=== PATIENT | female | born 1965 | race American Indian/Alaskan Native ===

== ENCOUNTER 2018-05-14 18:50 | Inpatient (IN) | payer OTHER ==
--- NOTE | 2018-05-14 18:59 | Emergency Department Report ---
ED Neuro Deficit HPI - General Stated Complaint: POSS CVA Time Seen by Provider: 05/14/18 18:54 Source: patient Mode of arrival: Ambulatory Limitations: No Limitations - History of Present Illness Initial Comments: 53-year-old female with a past medical history of hypertension not compliant with medications times several months presents to the hospital with complaints of sudden onset of slurred speech, left-sided face, left arm, and leg weakness and numbness started at 6 PM. The patient denies any pain. Symptoms are continuous. She denies previous history of CVA, or anticoagulant use. Does not have a primary care doctor. - Related Data Allergies/Adverse Reactions: Allergies Allergy/AdvReac Type Severity Reaction Status Date / Time No Known Allergies Allergy Unverified 05/14/18 18:57 ED Review of Systems ROS: Stated complaint: POSS CVA Other details as noted in HPI Comment: All other systems reviewed and negative ED Neuro Physical Exam - General Suspected Stroke: Yes - NIHSS Assessment Interval: Baseline 1a. Level of Consciousness: alert/keenly responsive 1b. LOC Questions: answers both correctly 1c. LOC Commands: performs tasks correctly 2. Best Gaze: normal 3. Visual: no visual loss 4. Facial Palsy: partial paralysis 5b. Motor Arm Right: no drift 5a. Motor Arm Left: some gravity effort 6a. Motor Leg Left: no gravity effort 6b. Motor Leg Right: no drift 7. Limb Ataxia: absent 8. Sensory: mild/moderate sensory loss (left) 9. Best Language: no aphasia 10. Dysarthria: mild/moderate dysarthria 11. Extinction/Inattention: no abnormality Total Score: 9 Stroke Severity: Moderate Stroke - Other Other exam information: General: No limitations, patient is alert in no acute distress Head exam: Atraumatic, normocephalic Eyes exam: Normal appearance, pupils equal reactive to light, extraocular movements intact ENT: Moist mucous membrane, normal oropharynx Neck exam: Normal inspection, full range of motion, no meningismus nontender Respiratory exam: Clear to auscultation bilateral, no wheezes, rales, crackles Cardiovascular: Normal rate and rhythm, normal heart sounds Abdomen: Soft, nondistended, and nontender, with normal bowel sounds, no rebound, or guarding Extremity: Full range of motion normal inspection no deformity Back: Normal Inspection, full range of motion, no tenderness Neurologic: Alert, oriented x3, see NIHSS Psychiatric: normal affect, normal mood Skin: Warm, dry, intact ED Course Vital Signs 05/14/18 05/14/18 05/14/18 19:14 19:16 19:30 Pulse Rate 90 69 73 Respiratory 18 20 11 L Rate Blood Pressure 162/99 O2 Sat by Pulse 100 100 Oximetry 05/14/18 05/14/18 05/14/18 19:45 20:19 20:20 Pulse Rate 72 89 84 Respiratory 18 20 18 Rate Blood Pressure 154/83 146/73 O2 Sat by Pulse 100 100 Oximetry 05/14/18 05/14/18 05/14/18 20:30 20:40 20:50 Pulse Rate 84 82 76 Respiratory 19 15 19 Rate Blood Pressure 161/91 161/91 142/92 O2 Sat by Pulse 99 99 100 Oximetry 05/14/18 05/14/18 05/14/18 21:00 21:10 21:20 Pulse Rate 72 77 82 Respiratory 17 14 15 Rate Blood Pressure 143/82 143/82 148/90 O2 Sat by Pulse 98 99 99 Oximetry 05/14/18 21:25 Pulse Rate Respiratory Rate Blood Pressure O2 Sat by Pulse 100 Oximetry - Consultations Consultation #1: 05/14/18 19:29 Dr Engel neuro assessed pt, agrees tpa is indicated. He reviewed Ct Head and no signs of bleed. Unfortunately diagnostic radiologic technologist is unable to send images to [facility] at this time therefore official report at this. He is aware and rec tpa be given at this time. - Lab Data Result diagrams: 05/14/18 19:11 05/14/18 19:11 Lab Results 05/14/18 05/14/18 05/14/18 Range/Units 19:11 19:11 19:11 WBC 8.2 (4.5-11.0) K/mm3 RBC 4.40 (3.65-5.03) M/mm3 Hgb 13.7 (10.1-14.3) gm/dl Hct 39.6 (30.3-42.9) % MCV 90 (79-97) fl MCH 31 (28-32) pg MCHC 35 H (30-34) % RDW 14.8 (13.2-15.2) % Plt Count 393 (140-440) K/mm3 Lymph % (Auto) 48.2 H (13.4-35.0) % [place] % (Auto) 9.7 H (0.0-7.3) % Eos % (Auto) 1.5 (0.0-4.3) % Baso % (Auto) 1.0 (0.0-1.8) % Lymph # 3.9 (1.2-5.4) K/mm3 [place] # 0.8 (0.0-0.8) K/mm3 Eos # 0.1 (0.0-0.4) K/mm3 Baso # 0.1 (0.0-0.1) K/mm3 Seg Neutrophils % 39.6 L (40.0-70.0) % Seg Neutrophils # 3.2 (1.8-7.7) K/mm3 PT 12.4 (12.2-14.9) Sec. INR 0.87 (0.87-1.13) APTT 25.8 (24.2-36.6) Sec. Thrombin Time (15.1-19.6) Sec. Sodium 142 (137-145) mmol/L Potassium 3.4 L (3.6-5.0) mmol/L Chloride 102.9 (98-107) mmol/L Carbon Dioxide 26 (22-30) mmol/L Anion Gap 17 mmol/L BUN 8 (7-17) mg/dL Creatinine 1.1 (0.7-1.2) mg/dL Estimated GFR > 60 ml/min BUN/Creatinine Ratio 7 % Glucose 86 (65-100) mg/dL Calcium 9.1 (8.4-10.2) mg/dL Troponin T < 0.010 (0.00-0.029) ng/mL Urine Opiates Screen Urine Methadone Screen Ur Barbiturates Screen Ur Phencyclidine Scrn Ur Amphetamines Screen U Benzodiazepines Scrn Urine Cocaine Screen U Marijuana (THC) Screen Drugs of Abuse Note 05/14/18 05/14/18 Range/Units 19:11 20:00 WBC (4.5-11.0) K/mm3 RBC (3.65-5.03) M/mm3 Hgb (10.1-14.3) gm/dl Hct (30.3-42.9) % MCV (79-97) fl MCH (28-32) pg MCHC (30-34) % RDW (13.2-15.2) % Plt Count (140-440) K/mm3 Lymph % (Auto) (13.4-35.0) % [place] % (Auto) (0.0-7.3) % Eos % (Auto) (0.0-4.3) % Baso % (Auto) (0.0-1.8) % Lymph # (1.2-5.4) K/mm3 [place] # (0.0-0.8) K/mm3 Eos # (0.0-0.4) K/mm3 Baso # (0.0-0.1) K/mm3 Seg Neutrophils % (40.0-70.0) % Seg Neutrophils # (1.8-7.7) K/mm3 PT (12.2-14.9) Sec. INR (0.87-1.13) APTT (24.2-36.6) Sec. Thrombin Time 16.3 (15.1-19.6) Sec. Sodium (137-145) mmol/L Potassium (3.6-5.0) mmol/L Chloride (98-107) mmol/L Carbon Dioxide (22-30) mmol/L Anion Gap mmol/L BUN (7-17) mg/dL Creatinine (0.7-1.2) mg/dL Estimated GFR ml/min BUN/Creatinine Ratio % Glucose (65-100) mg/dL Calcium (8.4-10.2) mg/dL Troponin T (0.00-0.029) ng/mL Urine Opiates Screen Presumptive negative Urine Methadone Screen Presumptive negative Ur Barbiturates Screen Presumptive negative Ur Phencyclidine Scrn Presumptive negative Ur Amphetamines Screen Presumptive negative U Benzodiazepines Scrn Presumptive negative Urine Cocaine Screen Presumptive negative U Marijuana (THC) Screen Presumptive negative Drugs of Abuse Note Disclamer - EKG Data -: EKG Interpreted by Ms EKG shows normal: sinus rhythm, axis (qrs -42), QRS complexes (qrsd 85), ST-T waves (no stemi/t inv) Rate: normal When compared to previous EKG there are: previous EKG unavailable - Radiology Data Radiology results: report reviewed HISTORY: neuro deficits <6hrs or sx present upon awakening COMPARISONS: None. FINDINGS: The ventricles are normal in size. The [place] matter and white matter appear normal. There are no mass lesions. There is no intracranial hemorrhage. The calvarium appears intact. The mastoid air cells and visualized paranasal sinuses are well aerated. IMPRESSION: Normal study. cta angio head and neck normal - Medical Decision Making Plans admit to the hospital for further stroke workup. She received TPA in the ED. Noncontrast CT head and CT angiogram head and neck are unremarkable - Differential Diagnosis CVA, TIA, mass, hemorrhage - Thrombolytic Inclusion/Exclusion Thrombolytic Inclusion Criteria: Ischemic Stroke Onset< 3h, NIH Stroke Scale Deficit, Negative CT Scan for ICH, Age 18 or Older, Glucose of 50-400mg/dl Critical Care Time: Yes Critical care time in (mins) excluding proc time.: 40 Critical care attestation.: If time is entered above; I have spent that time in minutes in the direct care of this critically ill patient, excluding procedure time. ED Disposition Clinical Impression: Acute CVA (cerebrovascular accident), Left-sided muscle weakness, Left sided numbness, HTN (hypertension), Noncompliance with medication regimen, Received intravenous tissue plasminogen activator (tPA) in emergency department Disposition: -09 OP ADMIT IP TO THIS HOSP Is pt being admited?: Yes Condition: Stable Time of Disposition: 21:48 (Dr Early/hosp)
[2018-05-14 19:24] LABS: Basophils # (Auto) 0.1 K/mm3 (0.0-0.1); Eosinophils # (Auto) 0.1 K/mm3 (0.0-0.4); Eosinophils % (Auto) 1.5 % (0.0-4.3); Hematocrit 39.6 % (30.3-42.9); Hemoglobin 13.7 gm/dl (10.1-14.3); Lymphocytes # (Auto) 3.9 K/mm3 (1.2-5.4); Lymphocytes % (Auto) 48.2 % (13.4-35.0); Mean Corpuscular HGB Conc 35 % (30-34); Mean Corpuscular Volume 90 fl (79-97); Monocytes # (Auto) 0.8 K/mm3 (0.0-0.8); Monocytes % (Auto) 9.7 % (0.0-7.3); Platelet Count 393 K/mm3 (140-440); Red Cell Distribution Width 14.8 % (13.2-15.2)
[2018-05-14] MEDS ORDERED: NACL 0.9% IV ONE (19:34)
[2018-05-14] MEDS ORDERED: ACTIVASE IV ONE ×2 (19:34)
[2018-05-14 19:38] LABS: BUN/Creatinine Ratio 7; Blood Urea Nitrogen 8 mg/dL (7-17); Calcium 9.1 mg/dL (8.4-10.2); Hemolysis Index 12
[2018-05-14 19:50] LABS: INR 0.87 (0.87-1.13)
[2018-05-14 19:51] LABS: Partial Thromboplastin Time 25.8 Sec. (24.2-36.6)
--- NOTE | 2018-05-14 19:53 | Cat Scan Report ---
PROCEDURE: CT head without contrast. TECHNIQUE: Computerized tomography of the head was performed without contrast material. CT DOSE LENGTH PRODUCT: 929.82 mGycm HISTORY: neuro deficits <6hrs or sx present upon awakening COMPARISONS: None. FINDINGS: The ventricles are normal in size. The [place] matter and white matter appear normal. There are no mass lesions. There is no intracranial hemorrhage. The calvarium appears intact. The mastoid air cells and visualized paranasal sinuses are well aerated. IMPRESSION: Normal study. This document is electronically signed by Bruno Jones MD., May 14 2018 07:51:34 PM ET
[2018-05-14 21:12] LABS: Amphetamine Screen,Urine PRESUMPTIVE NEGATIVE; Benzodiazepines Screen,Urine PRESUMPTIVE NEGATIVE; Cannabinoid Screen,Urine PRESUMPTIVE NEGATIVE; Cocaine Screen,Urine PRESUMPTIVE NEGATIVE; Methadone Screen,Urine PRESUMPTIVE NEGATIVE; Opiate Screen,Urine PRESUMPTIVE NEGATIVE
--- NOTE | 2018-05-14 21:33 | Cat Scan Report ---
PROCEDURE: CTA angiogram neck with contrast. TECHNIQUE: Computerized tomographic angiography of the neck was performed after the IV injection of iodinated nonionic contrast including image processing. The image data was postprocessed using 2-dime nsional multiplanar reformatted (MPR) and 3-dimensional (MIP and/or volume rendered) techniques. CT DOSE LENGTH PRODUCT: 2184.22 mGycm HISTORY: left sided numbness and weakness COMPARISONS: None. Note: Assessment of carotid artery stenosis is based on measurement of the distal internal carotid a rtery diameter as the denominator for stenosis calculations and the [place] Symptomatic Caroti d Endarterectomy Trial (NASCET) stenosis criteria. FINDINGS: The origins of the innominate artery, left common carotid artery and left subclavian artery are paten t. Both common carotid arteries are widely patent. Both carotid artery bifurcations are widely patent . The internal and external carotid arteries have normal lumens. There is no evidence of atherosclero tic disease. Both vertebral arteries are patent. The soft tissues of the neck are unremarkable. The b ones appear intact. IMPRESSION: Normal study. This document is electronically signed by Bruno Jones MD., May 14 2018 09:30:46 PM ET
--- NOTE | 2018-05-14 21:42 | Cat Scan Report ---
PROCEDURE: CT angiogram head with contrast. TECHNIQUE: Computerized tomographic angiography of the head was performed after the IV injection of iodinated nonionic contrast including image processing. The image data was postprocessed using 2-dim ensional multiplanar reformatted (MPR) and 3-dimensional (MIP and/or volume rendered) techniques. CT DOSE LENGTH PRODUCT: 2184.22 mGycm HISTORY: left sided numbness and weakness COMPARISONS: None . FINDINGS: Both distal internal carotid arteries are patent. Both anterior cerebral arteries are patent. The ant erior communicating artery is probably patent. Both middle cerebral arteries are patent. Both posteri or communicating arteries are patent. Both distal vertebral arteries are patent. The posterior inferi or cerebellar arteries are not definitely visualized. The basilar artery is patent. Both anterior inf erior cerebellar arteries are patent. Both superior cerebellar arteries and both posterior cerebral a rteries are patent. There are no signs of aneurysmal disease. There is no evidence of a vasculitis. T here is no evidence of abnormal contrast enhancement in the brain parenchyma. IMPRESSION: Normal study. This document is electronically signed by Bruno Jones MD., May 14 2018 09:39:24 PM ET
--- NOTE | 2018-05-14 22:09 | History and Physical Report ---
History of Present Illness Date of examination: 05/14/18 History of present illness: 53 year old woman with history of hypertension, non-compliant with medications comes emergency room with complaints of slurred speech, left-sided weakness and numbness. She arrived in the emergency room, was given TPA, state that her s ymptoms are improving Review of systems Constitutional: no weight loss, chills, fever Ears, eyes, nose, mouth and throat: no nasal congestion, no nasal discharge, no sinus pressure, no vision change, no red eye. Neck: No neck pain or rigidity. Cardiovascular: no palpitations, chest pain Respiratory: no cough, shortness of breath Gastrointestinal: no hematochezia, abdominal pain Genitourinary : no frequency , no hematuria Musculoskeletal: no joint swelling or muscle ache Integumentary: no rash, no pruritis Neurological: + parathesias, + focal weakness Endocrine: no cold or heat intolerance, no polyuria or polydipsia Hematologic/Lymphatic: no easy bruising, no easy bleeding, no gland swelling Allergic/Immunologic: no urticaria, no angioedema. PAST MEDICAL HISTORY:hypertension PAST SURGICAL HISTORY: None SOCIAL HISTORY: Denies alcohol, drugs, tobacco FAMILY HISTORY: Hypertension Medications and Allergies Allergies Allergy/AdvReac Type Severity Reaction Status Date / Time No Known Allergies Allergy Unverified 05/14/18 18:57 Exam - Physical Exam Narrative exam: General Apperance: The patient lying in bed, breathing comfortable HEENT: Normocephalic, atraumatic. Pupils equally round and reactive to light, EOMI, no sclericterus or JVD or thyromegaly or nodule. , no carotid bruit, mucous membranes moist, no exudate or erythema Heart: S1-S2, regular is rhythm Lungs: Clear to auscultation bilaterally, breathing comfortable Abdomen: Positive bowel sounds, soft, nontender, nondistended, no organomegaly Extremities: No edema cyanosis clubbing Skin: no rash, nodule, warm and dry Neuro: cranial nerves 2-12 intact, speech is fluent, left facial droop, motor/sensory intact - Constitutional Vitals: Temp Pulse Resp BP Pulse Ox 82 15 148/90 100 05/14/18 21:20 05/14/18 21:20 05/14/18 21:20 05/14/18 21:25 Results - Labs CBC & Chem 7: 05/14/18 19:11 05/14/18 19:11 Labs: Abnormal lab results 05/14/18 05/14/18 Range/Units 19:11 19:11 MCHC 35 H (30-34) % Lymph % (Auto) 48.2 H (13.4-35.0) % [place] % (Auto) 9.7 H (0.0-7.3) % Seg Neutrophils % 39.6 L (40.0-70.0) % Potassium 3.4 L (3.6-5.0) mmol/L - Imaging and Cardiology CT Scan - head: report reviewed Assessment and Plan Head and neck CTA reviewed Assessment Acute CVA Hypertension Noncompliant with medication Plan Admit to medicine Doing neuro checks, swallow screen Start statin, start aspirin after 24 hours Obtain MRI, consult neurology, PT and OT, critical care IV hydralazine as needed for blood pressure control DVT prophylaxis
[2018-05-14] MEDS ORDERED: SODIUM CHLORIDE FLUSH SYRINGE 10 ML IV PRN (22:17)
[2018-05-14] MEDS ORDERED: DULCOLAX PR PRN (22:17)
[2018-05-14] MEDS ORDERED: ZOFRAN IV PRN (22:17)
[2018-05-14] MEDS ORDERED: APRESOLINE IV PRN (22:23)
[2018-05-15 06:18] LABS: Chol/HDL Ratio 3.23 %
--- NOTE | 2018-05-15 08:16 | Progress Note ---
Assessment and Plan 53 year old woman with history of hypertension, non-compliant with medications comes emergency room with complaints of slurred speech, left-sided weakness and numbness. She arrived in the emergency room, was given TPA, state that her symp toms are improving. Acute CVA requiring tPA Hypertension Noncompliant with medication Hypokalemia Plan Neuro checks every 4, swallow screen Commence statin, aspirin after 24 hours Follow-up MRI/MRA of the head and neck, consult neurology, PT and OT, critical care IV hydralazine as needed for blood pressure control DVT prophylaxis SCD for now Subjective Date of service: 05/15/18 Principal diagnosis: acute CVA, hypertension Interval history: Patient seen and examined. Denies any headache no chest pain. No lateralizing neuro deficit. Objective - Exam Narrative Exam: Constitutional: Well-nourished well-developed. In no distress Head: Normocephalic atraumatic Eyes: Pupils are equal round and reactive to light Nose: No enlarged turbinates, no septal deviation. Mouth: Moist mucous membranes. Neck: Supple no thyromegaly. No bruit. No JVD Heart: Regular rate and rhythm, S1-S2 normal. No rubs murmurs or gallop Lungs: Clear to auscultation bilaterally. no rales or rhonchi Abdomen: Soft, nontender. Bowel sound are present. Extremities: No edema, no cyanosis, no clubbing. Neuro: Alert oriented Oriented x3. No focal sensory or motor deficit. Skin: No rashes or hyperpigmented spots Musculoskeletal system: No joint pain or swelling Hematological: No petechia or subcutanous hemorrhages. Immunological: No multiple septic spots on the skin Lymphatic: No generalized lymphadenopathy Psychiatry: Euthymic. Calm. - Constitutional Vitals: Vital Signs - 12hr 05/14/18 05/14/18 05/14/18 20:19 20:20 20:30 Temperature Pulse Rate 89 84 84 Pulse Rate [ Right Arm] Respiratory 20 18 19 Rate Respiratory Rate [Right Arm ] Blood Pressure 146/73 161/91 Blood Pressure [Right Arm] O2 Sat by Pulse 100 99 Oximetry O2 Sat by Pulse Oximetry [ Right Arm] 05/14/18 05/14/18 05/14/18 20:40 20:50 21:00 Temperature Pulse Rate 82 76 72 Pulse Rate [ Right Arm] Respiratory 15 19 17 Rate Respiratory Rate [Right Arm ] Blood Pressure 161/91 142/92 143/82 Blood Pressure [Right Arm] O2 Sat by Pulse 99 100 98 Oximetry O2 Sat by Pulse Oximetry [ Right Arm] 05/14/18 05/14/18 05/14/18 21:10 21:20 21:25 Temperature Pulse Rate 77 82 Pulse Rate [ Right Arm] Respiratory 14 15 Rate Respiratory Rate [Right Arm ] Blood Pressure 143/82 148/90 Blood Pressure [Right Arm] O2 Sat by Pulse 99 99 100 Oximetry O2 Sat by Pulse Oximetry [ Right Arm] 05/14/18 05/14/18 05/14/18 23:28 23:46 23:48 Temperature Pulse Rate 64 Pulse Rate [ 66 Right Arm] Respiratory 13 Rate Respiratory 11 L Rate [Right Arm ] Blood Pressure Blood Pressure 145/73 [Right Arm] O2 Sat by Pulse 99 100 Oximetry O2 Sat by Pulse 100 Oximetry [ Right Arm] 05/14/18 05/15/18 05/15/18 23:54 00:00 00:15 Temperature 98.9 F Pulse Rate 72 66 62 Pulse Rate [ 70 Right Arm] Respiratory 17 14 15 Rate Respiratory 15 Rate [Right Arm ] Blood Pressure 139/77 145/79 Blood Pressure 139/77 [Right Arm] O2 Sat by Pulse 100 97 97 Oximetry O2 Sat by Pulse 100 Oximetry [ Right Arm] 05/15/18 05/15/18 05/15/18 00:18 00:30 00:32 Temperature Pulse Rate 65 Pulse Rate [ 75 68 Right Arm] Respiratory 17 Rate Respiratory 15 14 Rate [Right Arm ] Blood Pressure 145/79 Blood Pressure 141/81 145/79 [Right Arm] O2 Sat by Pulse 99 Oximetry O2 Sat by Pulse 100 100 Oximetry [ Right Arm] 05/15/18 05/15/18 05/15/18 00:45 01:00 01:15 Temperature Pulse Rate 64 81 62 Pulse Rate [ 70 Right Arm] Respiratory 15 14 14 Rate Respiratory 19 Rate [Right Arm ] Blood Pressure 141/75 141/75 126/68 Blood Pressure 141/75 [Right Arm] O2 Sat by Pulse 98 99 95 Oximetry O2 Sat by Pulse 99 Oximetry [ Right Arm] 05/15/18 05/15/18 05/15/18 01:18 01:30 01:45 Temperature Pulse Rate 59 L 63 Pulse Rate [ 60 Right Arm] Respiratory 15 13 Rate Respiratory 13 Rate [Right Arm ] Blood Pressure 126/71 119/62 Blood Pressure 126/68 [Right Arm] O2 Sat by Pulse 99 98 Oximetry O2 Sat by Pulse 99 Oximetry [ Right Arm] 05/15/18 05/15/18 05/15/18 01:48 02:00 02:15 Temperature Pulse Rate 63 66 Pulse Rate [ 64 Right Arm] Respiratory 12 12 Rate Respiratory 13 Rate [Right Arm ] Blood Pressure 116/68 106/59 Blood Pressure 119/62 [Right Arm] O2 Sat by Pulse 99 98 Oximetry O2 Sat by Pulse 99 Oximetry [ Right Arm] 05/15/18 05/15/18 05/15/18 02:18 02:30 02:45 Temperature Pulse Rate 87 61 Pulse Rate [ 66 Right Arm] Respiratory 14 13 Rate Respiratory 12 Rate [Right Arm ] Blood Pressure 106/59 124/64 Blood Pressure 106/59 [Right Arm] O2 Sat by Pulse 100 98 Oximetry O2 Sat by Pulse 98 Oximetry [ Right Arm] 05/15/18 05/15/18 05/15/18 02:48 03:00 03:15 Temperature Pulse Rate 62 82 Pulse Rate [ 60 Right Arm] Respiratory 13 13 Rate Respiratory 12 Rate [Right Arm ] Blood Pressure 116/67 116/68 Blood Pressure 124/64 [Right Arm] O2 Sat by Pulse 99 97 Oximetry O2 Sat by Pulse 99 Oximetry [ Right Arm] 05/15/18 05/15/18 05/15/18 03:18 03:30 03:45 Temperature Pulse Rate 66 67 Pulse Rate [ 64 Right Arm] Respiratory 13 12 Rate Respiratory 12 Rate [Right Arm ] Blood Pressure 105/62 111/61 Blood Pressure 116/68 [Right Arm] O2 Sat by Pulse 98 95 Oximetry O2 Sat by Pulse 99 Oximetry [ Right Arm] 05/15/18 05/15/18 05/15/18 03:48 04:00 04:15 Temperature 98.7 F Pulse Rate 66 60 Pulse Rate [ 66 Right Arm] Respiratory 11 L 12 Rate Respiratory 12 Rate [Right Arm ] Blood Pressure 120/65 117/67 Blood Pressure 111/61 [Right Arm] O2 Sat by Pulse 97 99 Oximetry O2 Sat by Pulse 98 Oximetry [ Right Arm] 05/15/18 05/15/18 05/15/18 04:18 04:30 04:45 Temperature Pulse Rate 79 79 Pulse Rate [ 59 L Right Arm] Respiratory 13 13 Rate Respiratory 12 Rate [Right Arm ] Blood Pressure 110/71 118/60 Blood Pressure 117/67 [Right Arm] O2 Sat by Pulse 98 98 Oximetry O2 Sat by Pulse 99 Oximetry [ Right Arm] 05/15/18 05/15/18 05/15/18 04:48 05:00 05:16 Temperature Pulse Rate 68 58 L Pulse Rate [ 60 Right Arm] Respiratory 13 13 Rate Respiratory 12 Rate [Right Arm ] Blood Pressure 126/75 126/75 Blood Pressure 118/60 [Right Arm] O2 Sat by Pulse 100 100 Oximetry O2 Sat by Pulse 100 Oximetry [ Right Arm] 05/15/18 05/15/18 05/15/18 05:30 05:46 05:48 Temperature Pulse Rate 70 59 L Pulse Rate [ 60 Right Arm] Respiratory 11 L 11 L Rate Respiratory 12 Rate [Right Arm ] Blood Pressure 126/75 127/76 Blood Pressure 127/76 [Right Arm] O2 Sat by Pulse 100 98 Oximetry O2 Sat by Pulse 100 Oximetry [ Right Arm] 05/15/18 05/15/18 06:00 08:00 Temperature 98.4 F Pulse Rate 60 Pulse Rate [ 80 Right Arm] Respiratory 11 L Rate Respiratory 16 Rate [Right Arm ] Blood Pressure 121/69 Blood Pressure 121/69 [Right Arm] O2 Sat by Pulse 99 Oximetry O2 Sat by Pulse 100 Oximetry [ Right Arm] - Labs CBC & Chem 7: 05/14/18 19:11 05/14/18 19:11 Labs: Abnormal lab results 05/14/18 05/14/18 Range/Units 19:11 19:11 MCHC 35 H (30-34) % Lymph % (Auto) 48.2 H (13.4-35.0) % [place] % (Auto) 9.7 H (0.0-7.3) % Seg Neutrophils % 39.6 L (40.0-70.0) % Potassium 3.4 L (3.6-5.0) mmol/L
--- NOTE | 2018-05-15 10:02 | Consultation ---
History of Present Illness Consult date: 05/15/18 Requesting physician: MARILOU GRIFFITH Reason for consult: other (Acute CVA s/p tpA) History of present illness: PCCM CONSULT NOTE (Full note dictated # [id number]) Please see dictated notes for full details Medications and Allergies Allergies Allergy/AdvReac Type Severity Reaction Status Date / Time No Known Allergies Allergy Unverified 05/14/18 18:57 Active Meds: Active Medications Acetaminophen (Tylenol) 650 mg PO Q4H PRN PRN Reason: Pain, Mild (1-3) Atorvastatin Calcium (Lipitor) 40 mg PO QHS [facility] Last Admin: 05/14/18 23:14 Dose: 40 mg Documented by: Bisacodyl (Dulcolax) 10 mg DE QDAY PRN PRN Reason: Constipation Hydralazine HCl (Apresoline) 5 mg IV Q6H PRN PRN Reason: Hypertension Ondansetron HCl (Zofran) 4 mg IV Q4H PRN PRN Reason: Nausea And Vomiting Sodium Chloride (Sodium Chloride Flush Syringe 10 Ml) 10 ml IV PRN PRN PRN Reason: LINE FLUSH Physical Examination Vital signs: Vital Signs Pulse Resp 90 18 05/14/18 19:14 05/14/18 19:14 Results - Laboratory Findings CBC and BMP: 05/14/18 19:11 05/14/18 19:11 PT/INR, D-dimer PT 12.4 Sec. (12.2-14.9) 05/14/18 19:11 INR 0.87 (0.87-1.13) 05/14/18 19:11 Abnormal lab findings: Abnormal Labs 05/14/18 05/14/18 19:11 19:11 MCHC 35 H Lymph % (Auto) 48.2 [place] % (Auto) 9.7 H Seg Neutrophils % 39.6 L Potassium 3.4 L
[2018-05-15] MEDS: TYLENOL PO PRN ×2 (11:56→19:36)
[2018-05-15] MEDS: PEPCID PO SCH (11:56)
[2018-05-15] MEDS ORDERED: K-DUR PO ONE (12:00)
--- NOTE | 2018-05-15 12:54 | Consultation ---
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 She noted weakness and numbness of left arm, leg and face. She noted her speech was also slurred. She admits having a headache on 05/13 but not during the event on 05/14. She denies changes in vision, palptations, diaphoresis, chest pain, nausea, dizziness. There is no family history of stroke. The CT brain scan is neg. for acute stroke. She arrived to ER in the appropriate timeframe for TPA and this was provided. She is feeling better at this time with resolution of weakness and numbness except for her left hand and left face. She has been taking no medications. Past History Past Medical History: hypertension Social history: denies: smoking, alcohol abuse Family history: cancer, other (COPD) Medications and Allergies Allergies Allergy/AdvReac Type Severity Reaction Status Date / Time No Known Allergies Allergy Unverified 05/14/18 18:57 Active Meds: Active Medications Acetaminophen (Tylenol) 650 mg PO Q4H PRN PRN Reason: Pain, Mild (1-3) Last Admin: 05/15/18 11:56 Dose: 650 mg Documented by: Atorvastatin Calcium (Lipitor) 40 mg PO QHS [facility] Last Admin: 05/14/18 23:14 Dose: 40 mg Documented by: Bisacodyl (Dulcolax) 10 mg DC QDAY PRN PRN Reason: Constipation Famotidine (Pepcid) 20 mg PO DAILY [facility] Last Admin: 05/15/18 11:56 Dose: 20 mg Documented by: Hydralazine HCl (Apresoline) 5 mg IV Q6H PRN PRN Reason: Hypertension Ondansetron HCl (Zofran) 4 mg IV Q4H PRN PRN Reason: Nausea And Vomiting Sodium Chloride (Sodium Chloride Flush Syringe 10 Ml) 10 ml IV PRN PRN PRN Reason: LINE FLUSH Review of Systems Constitutional: weakness, no chronic headaches Ears, nose, mouth and throat: no tinnitis, no decreased hearing Cardiovascular: no chest pain, no palpitations, no rapid/irregular heart beat, no syncope, no lightheadedness, no shortness of breath Respiratory: no cough, no shortness of breath, no congestion Gastrointestinal: no abdominal pain, no nausea, no vomiting, no diarrhea, no constipation Genitourinary Female: no dysuria, no urinary frequency, no urgency Musculoskeletal: arm numbness/tingling Integumentary: no rash, no pruritis Neurological: weakness, numbness, tingling, change in speech, gait dysfunction, motor disturbance, sensory deficit, no balance difficulties, no double vision, no loss of vision, no hearing difficulties Physical Examination - Vital Signs Vital Signs: Vital Signs Pulse Resp 90 18 05/14/18 19:14 05/14/18 19:14 - Physical Exam Narrative exam: General - Resting comfortably in bed. Neurological exam - Speech fluent, low volume. Relates history well. CN's - EOMs full, no nystagmus. Face with left weakness. V-1 thru V-3 with numbness to touch on left. hearing intact. tongue midline. Motor - 5/5 on right. Left - deltoids, triceps, biceps 5/5. wrist extensors 4/5. finger extensors 3/5. 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 LLE - 5/5 in all groups. Reflexes - trace throughout. Sensory - intact arm and leg. Decreased touch left hand, lt. face. Cerebellar - FTN, fine finger movements, Adilia intact. - Assessment Assessment Interval: 24 hours post onset of symptoms +-20 minutes - Level of Consciousness 1a. Level of Consciousness: alert/keenly responsive - LOC Questions 1b. LOC Questions: answers both correctly - LOC Command 1c. LOC Commands: performs tasks correctly - Best Gaze 2. Best Gaze: normal - Visual 3. Visual: no visual loss - Facial Palsy 4. Facial Palsy: partial paralysis - Motor Arm 5a. Motor Arm Left: drift 5b. Motor Arm Right: no drift - Motor Leg 6a. Motor Leg Left: no drift 6b. Motor Leg Right: no drift - Limb Ataxia 7. Limb Ataxia: absent - Sensory 8. Sensory: mild/moderate sensory loss (left) - Best Language 9. Best Language: no aphasia - Dysarthria 10. Dysarthria: normal - Extinction and Inattention 11. Extinction/Inattention: no abnormality - Scoring Total Score: 4 Stroke Severity: Minor Stroke Results - Laboratory Findings CBC and BMP: 05/14/18 19:11 05/14/18 19:11 Abnormal Lab Findings: Abnormal Labs 05/14/18 05/14/18 19:11 19:11 MCHC 35 H Lymph % (Auto) 48.2 H Jewell % (Auto) 9.7 H Seg Neutrophils % 39.6 L Potassium 3.4 L Assessment and Plan 53 year old female with history of hypertension, on no meds, presented to ER with acute left sided weakness and dysarthria. CT was neg. She received TPA and has done well with resolution of weakness and numbness in the extremities. There is residual numbness in the left hand and face. Plan - ASA daily, start when appropriate Blood pressure control Atorvastatin.
--- NOTE | 2018-05-15 13:50 | XRay Report ---
AP CHEST: HISTORY: Hypoxemia AP view of the chest demonstrates a normal mediastinal and cardiac contour with clear lungs and normal bony and soft tissue structures. IMPRESSION: Unremarkable AP chest.
[2018-05-15] MEDS: MYLICON PO PRN (16:58)
--- NOTE | 2018-05-15 22:38 | Consultation ---
PULMONARY CRITICAL CARE CONSULTATION CONSULTING PHYSICIAN: Izabella Early MD REASON FOR CONSULTATION: Acute cerebrovascular accident, status post TPA. CHIEF COMPLAINT AND HISTORY OF PRESENT ILLNESS: As follows, the patient is a 53-year-old -S[place]i female with past medical history significant for hypertension, really noncompliant with her medications, came into the hospital. She states she woke up out of sleep with sudden onset of slurred speech and left-sided numbness, her arm, her face. Her legs were weak. She denied any pain. She denied any trauma. She came into the ER. In the ER, her evaluation was consistent with a cerebrovascular accident. After appropriate evaluation. She was given thrombolytic therapy and admitted to the Intensive Care Unit for further evaluation. When I stopped by to see her today, she was feeling a little bit stronger on the left side. She denied any bleeding. No hematuria. No hemoptysis. No hematemesis. She denied nausea or vomiting. She denied any current headache or any suggestion of an intracranial bleed. She denies a history of seizure disorders. She denied any trauma to her head. When asked about tobacco use/abuse history, she denied tobacco use or abuse. This really is as much of the history of presentation as I have. PAST MEDICAL HISTORY: 1. Hypertension. 2. She is obese. PAST SURGICAL HISTORY: Denies. MEDICATIONS: She was on at the time I stopped by to see were reviewed, pertinent medications include the following: Tylenol 650 mg p.o. q. 4 hours p.r.n. mild pain, Lipitor 40 mg p.o. at bedtime, Dulcolax suppository 10 mg per rectum p.r.n. constipation, hydralazine 5 mg IV q. 6 hours p.r.n. hypertension or elevated blood pressure, Zofran 4 mg IV q. 4 hours p.r.n. nausea and vomiting. ALLERGIES: No known drug allergies. DIET: Obese lady, denies acute weight loss or gain in the preceding few weeks to months. FAMILY AND SOCIAL HISTORY: Lives in the community. Denies alcohol, tobacco, or illicit drug use or abuse. There is a family history of hypertension. REVIEW OF SYSTEMS: She denies loss of consciousness. She had the new onset focal weakness on the left side. Denied any headache. Denied gross hematochezia or melena. Denies gross hematuria or dysuria. Denied any seizures. Denies polydipsia or polyuria. Denies heat or cold intolerance. Denies any history of ____ anxiety, unexplained anxiety or depression. Denies any spasticity. Complete 13-system review of systems obtained. Pertinent positives and/or negatives as in body of history above, otherwise noncontributory. PHYSICAL EXAMINATION: VITAL SIGNS: At presentation, she was afebrile, temperature was 98.9 Fahrenheit with a pulse of 90, respiratory rate of 18, blood pressure 162/99, oxygen sats 100%. When I stopped by to see her, she was 99% on 2 liters nasal cannula. GENERAL: She is an obese, middle-aged -S[place]i female, normocephalic, atraumatic, talking to me in full sentences, but with slightly slurred speech with mildly increased respiratory effort at rest. HEAD, EYES, EARS, NOSE AND THROAT: She is anicteric. No conjunctival erythema. Oropharynx is moist, is a Mallampati #3. No gross jugular venous distention, no thyromegaly. Grossly, no palpable lymph nodes in the supraclavicular or submandibular lymph node chains. LUNGS: Auscultation of both lung wilhelm significant for faint inspiratory crackles at the bases of her lungs posteriorly. No wheezing. HEART: Heart sounds 1 and 2 are heard. They were regular in rate and rhythm at time of my evaluation without rubs or murmurs. ABDOMEN: Soft, full, bowel sounds are positive, nontender, no palpable hepatosplenomegaly. EXTREMITIES: Without overt digital clubbing, no cyanosis, no pedal edema. NEUROLOGIC: Pupils equal, round, about 5 mm, reactive to light. Extraocular muscle movements were intact. She has a little bit of slurred speech. She is slightly weak in the left side. I would say power is 4/5 on the left upper and lower extremities, 5/5 on the right side. No fasciculations. No spasticity. SKIN: Normal turgor without overt cellulitis or rash. LABORATORY DATA: From my review are as follows: Admission white cell count 8200, hemoglobin 13.7, hematocrit 39.6 and platelet count 393. No band forms. INR 0.87. Serum sodium 142, potassium 3.4, chloride 103, bicarb 26, BUN 8, creatinine 1.1, glucose 86. LDL cholesterol is 87. Urine drug screen was negative. No microbiology studies. A CT scan was done of the head as well as CT angio of the head and neck. I have reviewed the results. The CT of the brain was read as a normal study. The CT angiogram of the head was read as a normal study and the CT angiogram of the neck was also normal study. ASSESSMENT AND PLAN: 1. Acute cerebrovascular accident, status post TPA. 2. Hypertension, poorly controlled. 3. Obesity. 4. Medication noncompliance. 5. Mild hypokalemia. PLAN: I have discussed the risk factors of cerebrovascular accidents with her. I explained the importance of her using her medications as ordered in particular the importance of controlling her blood pressure better. I have also expressed to her, she will benefit from weight loss and expressed to her that the incidence of sleep disordered breathing is also increased in patients with a cerebrovascular injuries and she will probably benefit from sleep study as outpatient. She denies any significant excessive daytime somnolence at this time or overt signs and symptoms of obstructive sleep apnea. The plan will be to observe her in the Intensive Care Unit over the next 24 hours. She has a Gurrola catheter in place. We will keep that in place, still we are done with the 24-hour observation. Oxygen will be weaned to keep sats greater than or equal to about 90% in light of the inspiratory crackles which hopefully are no more than subsegmental atelectatic changes. I will get a chest x-ray and address as necessary. Bronchodilators will be only on a p.r.n. basis. Aspiration precautions will be maintained. She has appropriately been started on antilipid therapy. Antihypertensives will be introduced. She has also been started now on GI prophylaxis, especially post-TPA. She will also be started on DVT prophylaxis. After the 24-hour window, flu and pneumonia vaccination will be addressed per protocol. Thank you very much for the consult, Dr. Early. We will follow along. We will make further recommendations as picture progresses/becomes clearer. She is critically ill at elevated risk of acute decompensation of the neurological system including the risk of a cerebrovascular accident bleeding and even the risk of post-TPA. At this time, I have spent about 30-35 minutes of critical care time without overlap excluding any procedural time that may be necessary. JOB# [id number] MARYANN/NIDIA SOLIS
[2018-05-16] MEDS: MYLICON PO PRN (03:51)
[2018-05-16] MEDS: TYLENOL PO PRN ×2 (03:52→10:39)
--- NOTE | 2018-05-16 08:20 | Progress Note ---
Assessment and Plan Assessment and plan: Patient is a 53 yo man with a history of hypertension who presented to [facility] ED with slurred speech and left side weakness s/p tPA on 05/14/18 at approximately 7:52pm. She was admitted to ICU for further care. -Acute CVA s/p tPA: repeat imaging -Hypertension: monitor closely -Hypokalemia: replete and monitor closely History Interval history: Patient was seen and examined. Follow-up on current diagnosis of CVA. Overnight uneventful. Patient denies any chest pain, shortness breath, nausea/vomiting or severe headaches. Imaging, nursing note, chart, labs and old chart reviewed. Discussed with nursing, pt c/o worsening slurred speech Hospitalist Physical - Physical exam Narrative exam: Gen: WDWN, NAD, Awake, Alert, Orientated HEENT: NCAT, EOMI, PERRL, OP Clear Neck: supple, no adenopathy, no thyromegaly, no JVD CVS/Heart: RRR, normal S1S2, pulses present bilaterally Chest/Lungs: CTA B, Symmetrical chest expansion, good air entry bilaterally GI/Abdomen: soft, NTND, good bowel sounds, no guarding or rebound /Bladder: no suprapubic tenderness, no CVA or paraspinal tenderness Extermity/Skin: no c/c/e, no obvious rash MSK: FROM x 3 Neuro: CN 2-12 grossly intact, left hemiparesis, left facial droop Psych: calm - Constitutional Vitals: Temp Pulse Resp BP Pulse Ox 98.6 F 57 L 12 127/76 98 05/16/18 03:25 05/16/18 07:00 05/16/18 07:00 05/16/18 07:00 05/16/18 07:43 Results - Labs CBC & Chem 7: 05/14/18 19:11 05/14/18 19:11 Labs: Laboratory Last Values WBC 8.2 K/mm3 (4.5-11.0) 05/14/18 19:11 RBC 4.40 M/mm3 (3.65-5.03) 05/14/18 19:11 Hgb 13.7 gm/dl (10.1-14.3) 05/14/18 19:11 Hct 39.6 % (30.3-42.9) 05/14/18 19:11 MCV 90 fl (79-97) 05/14/18 19:11 MCH 31 pg (28-32) 05/14/18 19:11 MCHC 35 % (30-34) H 05/14/18 19:11 RDW 14.8 % (13.2-15.2) 05/14/18 19:11 Plt Count 393 K/mm3 (140-440) 05/14/18 19:11 Lymph % (Auto) 48.2 % (13.4-35.0) H 05/14/18 19:11 Carver % (Auto) 9.7 % (0.0-7.3) H 05/14/18 19:11 Eos % (Auto) 1.5 % (0.0-4.3) 05/14/18 19:11 Baso % (Auto) 1.0 % (0.0-1.8) 05/14/18 19:11 Lymph # 3.9 K/mm3 (1.2-5.4) 05/14/18 19:11 Carver # 0.8 K/mm3 (0.0-0.8) 05/14/18 19:11 Eos # 0.1 K/mm3 (0.0-0.4) 05/14/18 19:11 Baso # 0.1 K/mm3 (0.0-0.1) 05/14/18 19:11 Seg Neutrophils % 39.6 % (40.0-70.0) L 05/14/18 19:11 Seg Neutrophils # 3.2 K/mm3 (1.8-7.7) 05/14/18 19:11 PT 12.4 Sec. (12.2-14.9) 05/14/18 19:11 INR 0.87 (0.87-1.13) 05/14/18 19:11 APTT 25.8 Sec. (24.2-36.6) 05/14/18 19:11 Thrombin Time 16.3 Sec. (15.1-19.6) 05/14/18 19:11 Sodium 142 mmol/L (137-145) 05/14/18 19:11 Potassium 3.4 mmol/L (3.6-5.0) L 05/14/18 19:11 Chloride 102.9 mmol/L (98-107) 05/14/18 19:11 Carbon Dioxide 26 mmol/L (22-30) 05/14/18 19:11 Anion Gap 17 mmol/L 05/14/18 19:11 BUN 8 mg/dL (7-17) 05/14/18 19:11 Creatinine 1.1 mg/dL (0.7-1.2) 05/14/18 19:11 Estimated GFR > 60 ml/min 05/14/18 19:11 BUN/Creatinine Ratio 7 % 05/14/18 19:11 Glucose 86 mg/dL (65-100) 05/14/18 19:11 Calcium 9.1 mg/dL (8.4-10.2) 05/14/18 19:11 Troponin T < 0.010 ng/mL (0.00-0.029) 05/14/18 19:11 Triglycerides 142 mg/dL (2-149) 05/15/18 05:32 Cholesterol 139 mg/dL (50-199) 05/15/18 05:32 LDL Cholesterol Direct 87 mg/dL (50-130) 05/15/18 05:32 HDL Cholesterol 43 mg/dL (40-59) 05/15/18 05:32 Cholesterol/HDL Ratio 3.23 % 05/15/18 05:32 Urine Opiates Screen Presumptive negative 05/14/18 20:00 Urine Methadone Screen Presumptive negative 05/14/18 20:00 Ur Barbiturates Screen Presumptive negative 05/14/18 20:00 Ur Phencyclidine Scrn Presumptive negative 05/14/18 20:00 Ur Amphetamines Screen Presumptive negative 05/14/18 20:00 U Benzodiazepines Scrn Presumptive negative 05/14/18 20:00 Urine Cocaine Screen Presumptive negative 05/14/18 20:00 U Marijuana (THC) Screen Presumptive negative 05/14/18 20:00 Drugs of Abuse Note Disclamer 05/14/18 20:00
--- NOTE | 2018-05-16 08:32 | Cat Scan Report ---
CT HEAD WITHOUT CONTRAST: HISTORY: Change in mental status. TECHNIQUE: Sequential 2.5mm CT images. COMPARISON: 05/14/18. FINDINGS: Cerebral Parenchyma: A subtle area of diminished attenuation with loss of [place]-white interface is identified in the lateral right frontal lobe measuring 2.5 x 1.7 cm on image 32. This is a new finding since 05/14/18 exam and is most consistent with a subacute ischemic insult. The remaining brain parenchyma remains within normal limits. Cerebellum: Within normal limits. Brainstem: Within normal limits. Ventricles: Normal. Sella: Normal. Extra-axial spaces: Normal. Basal Cisterns: Normal. Intracranial Hemorrhage: None. Midline Shift: None. Calvarium: Normal. Sinuses: Normal. Mastoid Air Cells: Normal. Visualized Orbits: Normal. IMPRESSION: Subacute ischemic changes are suspected in the right frontal lobe as described above which is new since 05/14/18. No evidence for hemorrhage or mass effect. Dr. Campos was paged [phone] to be notified of these findings.
[2018-05-16] MEDS: PEPCID PO SCH (10:40)
[2018-05-16 11:37] LABS: BUN/Creatinine Ratio 10; Blood Urea Nitrogen 8 mg/dL (7-17); Calcium 8.8 mg/dL (8.4-10.2); Hemolysis Index 2
[2018-05-16] MEDS ORDERED: KCL 10MEQ/100ML 10 MEQ/100 ML BAG IV SCH (12:00)
--- NOTE | 2018-05-16 12:18 | Progress Note ---
Assessment and Plan Acute cerebrovascular accident, status post TPA. Hypertension, poorly controlled. Obesity. Medication noncompliance. Mild hypokalemia - potasium replced - begin antiplatelet therapy with ASA - begin DVT prophylaxis with lovenox - PT/OT as tolerated - follow MRI brain report - reintroduce antihypertensives - continue antilipid therapy with Atorvastatin - GI prophylaxis with famotidine - continue other care per attending / other consultants - continued tobacco abstinence counseled ... re-evaluate in am & prn .... can transfer out of ICU Subjective Date of service: 05/16/18 Principal diagnosis: Acute CVA s/p TPA; HTN; Obesity; Medication noncompliance Interval history: Patient is seen today for: Acute cerebrovascular accident, status post TPA; Hypertension, poorly controlled; Obesity; Medication noncompliance. Seen and examined at bedside; 24hour events reviewed; nursing and respiratory care staff consulted; no adverse overnight events reported to me; resting peacefully in bed; complained of worsening of slurred speech and weakness earlier but repeat CT brain consistent with prior events; doing better now; just ate lunch; No N/V/F/C; denies acute chest pains or palpitations Objective Vital Signs - 12hr 05/16/18 05/16/18 05/16/18 01:00 02:00 03:00 Temperature Pulse Rate 72 61 64 Respiratory 16 14 12 Rate Blood Pressure 135/77 135/73 120/68 O2 Sat by Pulse 94 95 95 Oximetry 05/16/18 05/16/18 05/16/18 03:25 04:00 05:00 Temperature 98.6 F Pulse Rate 60 57 L Respiratory 16 11 L Rate Blood Pressure 134/77 129/70 O2 Sat by Pulse 100 95 Oximetry 05/16/18 05/16/18 05/16/18 06:00 07:00 07:43 Temperature Pulse Rate 62 57 L Respiratory 10 L 12 Rate Blood Pressure 110/70 127/76 O2 Sat by Pulse 98 99 98 Oximetry 05/16/18 05/16/18 05/16/18 09:51 10:00 11:00 Temperature Pulse Rate 61 58 L 64 Respiratory 15 13 15 Rate Blood Pressure 131/68 133/80 O2 Sat by Pulse 99 98 97 Oximetry Constitutional: no acute distress, alert, other (middle aged obese AAF, normocephalic and atraumatic with normal respiratory effort at rest) Eyes: non-icteric ENT: oropharynx moist, other (mallampati 3) Neck: supple, no lymphadenopathy, no JVD Effort: normal Ascultation: Bilateral: clear Percussion: Bilateral: not dull Cardiovascular: regular rate and rhythm, other (No R/M) Gastrointestinal: normoactive bowel sounds, soft, non-tender, non-distended, other (No HSM) Integumentary: normal Extremities: no cyanosis, no edema, pulses normal, no ischemia or petechiae Neurologic: normal mental status, pupils equal and round, CN II-XII normal, other (Mild left hemiparesis and slurred speech) Psychiatric: mood appropriate, affect normal CBC and BMP: 05/14/18 19:11 05/16/18 10:46 ABG, PT/INR, D-dimer: PT/INR, D-dimer PT 12.4 Sec. (12.2-14.9) 05/14/18 19:11 INR 0.87 (0.87-1.13) 05/14/18 19:11 Abnormal lab findings: Abnormal Labs 05/14/18 05/14/18 05/16/18 19:11 19:11 10:46 MCHC 35 H Lymph % (Auto) 48.2 H [place] % (Auto) 9.7 H Seg Neutrophils % 39.6 L Potassium 3.4 L Glucose 109 H Chest x-ray: image reviewed (borderline cardiomegaly) Allied health notes reviewed: nursing
--- NOTE | 2018-05-16 12:54 | Progress Note ---
Assessment and Plan 53 year old female with history of hypertension, on no meds, presented to ER with acute left sided weakness and dysarthria. CT was neg. She received TPA and has done well with resolution of weakness and numbness in the extremities. There is residual numbness in the left hand and face, facial droop. CT and MRI confirm the area of stroke in rt. posterior frontal-parietal cortex. Plan - ASA daily, start when appropriate Blood pressure control Atorvastatin. 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 She noted weakness and numbness of left arm, leg and face. She noted her speech was also slurred. She received TPA on 05/14 and has had resolution of the weakness, with residual numbness in face and hand. She denies headache. Objective - Exam Narrative Exam: General - Resting comfortably in bed. Neurological exam - Speech fluent, low volume. Relates history well. CN's - EOMs full, no nystagmus. Face with left weakness. V-1 thru V-3 with numbness to touch on left. hearing intact. tongue midline. Motor - 5/5 on right. Left - deltoids, triceps, biceps 5/5. wrist extensors 4- /5. finger extensors 4-/5. 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 LLE - 5/5 in all groups. Reflexes - trace throughout. Sensory - intact arm and leg. Decreased touch left hand, lt. face. Cerebellar - FTN, fine finger movements, Adilia intact. - Vital Sign Vital Signs - 12hr 05/16/18 05/16/18 05/16/18 01:00 02:00 03:00 Temperature Pulse Rate 72 61 64 Respiratory 16 14 12 Rate Blood Pressure 135/77 135/73 120/68 O2 Sat by Pulse 94 95 95 Oximetry 05/16/18 05/16/18 05/16/18 03:25 04:00 05:00 Temperature 98.6 F Pulse Rate 60 57 L Respiratory 16 11 L Rate Blood Pressure 134/77 129/70 O2 Sat by Pulse 100 95 Oximetry 05/16/18 05/16/18 05/16/18 06:00 07:00 07:43 Temperature Pulse Rate 62 57 L Respiratory 10 L 12 Rate Blood Pressure 110/70 127/76 O2 Sat by Pulse 98 99 98 Oximetry 05/16/18 05/16/18 05/16/18 09:51 10:00 11:00 Temperature Pulse Rate 61 58 L 64 Respiratory 15 13 15 Rate Blood Pressure 131/68 133/80 O2 Sat by Pulse 99 98 97 Oximetry - Laboratory Findings CBC and BMP: 05/14/18 19:11 05/16/18 10:46 Abnormal Lab Findings: Abnormal Labs 05/14/18 05/14/18 05/16/18 19:11 19:11 10:46 MCHC 35 H Lymph % (Auto) 48.2 H Emanuel % (Auto) 9.7 H Seg Neutrophils % 39.6 L Potassium 3.4 L Glucose 109 H
[2018-05-16] MEDS: ECOTRIN PO SCH (13:57)
[2018-05-16] MEDS: LOVENOX SUB-Q SCH (13:57)
--- NOTE | 2018-05-16 14:01 | Magnetic Resonance Report ---
MRI OF THE BRAIN WITHOUT CONTRAST: HISTORY: Stroke PROCEDURE: Multiplanar, multisequence MR imaging of the brain without IV contrast was performed. FINDINGS: The CT head performed earlier today was reviewed. MRI confirms an approximate 2.6 x 1.7 cm area of diffusion restriction in the posterior right frontal lobe. This corresponds to the area of diminished attenuation seen on recent CT. There is no evidence for mass effect or hemorrhage. Minimal nonspecific chronic white matter changes are identified. Otherwise, the brain parenchyma signal intensity is within normal limits on the remaining sequences. The midline structures are central. The basal cisterns are patent. Normal ventricular size. The orbital cavities and sella turcica demonstrate no abnormality. The visualized paranasal sinuses and mastoid air cells are well aerated. IMPRESSION: Subacute ischemic infarct in the right posterior frontal lobe as described above.
[2018-05-16] MEDS ORDERED: AMBIEN PO PRN (20:55)
[2018-05-17] MEDS: ECOTRIN PO SCH (10:00)
[2018-05-17] MEDS: LOVENOX SUB-Q SCH (10:01)
[2018-05-17] MEDS: PEPCID PO SCH (10:01)
--- NOTE | 2018-05-17 10:25 | Progress Note ---
Assessment and Plan Patient alert and awake.Patient resting on room air.O2 saturation 99%.Denies cough. No acute respiratory distress. - Patient Problems (1) Acute CVA (cerebrovascular accident) Current Visit: Yes Status: Acute Plan to address problem: Management as per primary care and neurology. Recommend aspiration precautions. (2) HTN (hypertension) Current Visit: Yes Status: Acute Plan to address problem: Management as per primary care. (3) Received intravenous tissue plasminogen activator (tPA) in emergency department Current Visit: Yes Status: Acute Plan to address problem: Management as per neurology. Subjective Date of service: 05/17/18 Principal diagnosis: Acute CVA s/p TPA; HTN; Obesity; Medication noncompliance Interval history: Patient alert and awake.Patient resting on room air.O2 saturation 99%.Denies cough. No acute respiratory distress. Objective Vital Signs - 12hr 05/17/18 04:57 Temperature 97.7 F Pulse Rate 69 Respiratory 20 Rate Blood Pressure 120/65 O2 Sat by Pulse 97 Oximetry Constitutional: no acute distress, alert, other (middle aged obese AAF, normocephalic and atraumatic with normal respiratory effort at rest) Eyes: non-icteric ENT: oropharynx moist, other (mallampati 3) Neck: supple, no lymphadenopathy, no JVD Effort: normal Ascultation: Bilateral: clear Percussion: Bilateral: not dull Cardiovascular: regular rate and rhythm, other (No R/M) Gastrointestinal: normoactive bowel sounds, soft, non-tender, non-distended, other (No HSM) Integumentary: normal Extremities: no cyanosis, no edema, pulses normal, no ischemia or petechiae Neurologic: normal mental status, pupils equal and round, CN II-XII normal, other (Mild left hemiparesis and slurred speech) Psychiatric: mood appropriate, affect normal CBC and BMP: 05/14/18 19:11 05/16/18 10:46 ABG, PT/INR, D-dimer: PT/INR, D-dimer PT 12.4 Sec. (12.2-14.9) 05/14/18 19:11 INR 0.87 (0.87-1.13) 05/14/18 19:11 Abnormal lab findings: Abnormal Labs 05/14/18 05/14/18 05/16/18 19:11 19:11 10:46 MCHC 35 H Lymph % (Auto) 48.2 H [place] % (Auto) 9.7 H Seg Neutrophils % 39.6 L Potassium 3.4 L Glucose 109 H Chest x-ray: report reviewed, image reviewed (Reported unremarkable AP chest.) Allied health notes reviewed: nursing
[2018-05-17] MEDS: TYLENOL PO PRN (14:37)
--- NOTE | 2018-05-17 15:40 | Discharge Summary ---
Providers - Providers Date of Admission: 05/14/18 22:17 Date of discharge: 05/17/18 Attending physician: BRENDA WILD 05/14/18 Consult to Physician [CONS] Routine Comment: Consulting Provider: SEPIDEH JEFFERY Physician Instructions: Reason For Exam: cva 05/14/18 22:17 Occupational Therapy Evaluate and Treat [CONS] Routine Comment: Reason For Exam: Neuro deficits Physical Therapy Evaluation and Treat [CONS] Routine Comment: Reason For Exam: Neuro deficits 05/14/18 22:23 Consult to Physician [CONS] Routine Comment: Consulting Provider: TERESO BARRERA Physician Instructions: Reason For Exam: cc 05/17/18 11:13 Occupational Therapy Evaluate and Treat [CONS] Routine Comment: Reason For Exam: ADLs evaluation Physical Therapy Evaluation and Treat [CONS] Routine Comment: Reason For Exam: gait evaluation/ambulatory dysfunction Primary care physician: LITERARY AGENT Hospitalization Condition: Stable Hospital course: Patient is a 53 yo man with a history of hypertension who presented to [facility] ED with slurred speech and left side weakness s/p tPA on 05/14/18 at approximately 7:52pm. She was admitted to ICU for further care. -Acute CVA s/p tPA: repeat imaging -Hypertension: monitor closely -Hypokalemia: replete and monitor closely Home with outpatient PT per patient's wishes FMLA form filled out Disposition: DC-01 TO HOME OR SELFCARE Time spent for discharge: 35 minutes Core Measure Documentation - Palliative Care Palliative Care/ Comfort Measures: Not Applicable - Core Measures Any of the following diagnoses?: stroke - VTE Discharge Requirements Deep Vein Thrombosis/Pulmonary Embolism Present on Admission: No Has pt received <5 days of overlap therapy or INR<2.0: No Anticoagulant overlap therapy prescribed at discharge: No Contraindication No Overlap Therapy order at DC: Not Indicated - Stroke Discharge Requirements Statin for LDL = or >70 mg/dl on DC: Yes Anticoag for atrial fib/atrial flutter: Not Applicable Reason for no anticoag for AF/F on DC: Not Indicated Antithrombotic for ischemic stroke: Yes Exam - Physical Exam Narrative exam: Gen: WDWN, NAD, Awake, Alert, Orientated HEENT: NCAT, EOMI, PERRL, OP Clear Neck: supple, no adenopathy, no thyromegaly, no JVD CVS/Heart: RRR, normal S1S2, pulses present bilaterally Chest/Lungs: CTA B, Symmetrical chest expansion, good air entry bilaterally GI/Abdomen: soft, NTND, good bowel sounds, no guarding or rebound /Bladder: no suprapubic tenderness, no CVA or paraspinal tenderness Extermity/Skin: no c/c/e, no obvious rash MSK: FROM x 3 Neuro: CN 2-12 grossly intact, left hemiparesis, left facial droop Psych: calm - Constitutional Vitals: Temp Pulse Resp BP Pulse Ox 98.6 F 71 20 126/73 96 05/17/18 11:30 05/17/18 11:30 05/17/18 14:37 05/17/18 11:30 05/17/18 11:30 Plan Activity: up only with assistance, other (no strenous activity unless cleared by PCP) Diet: low salt Follow up with: PRIMARY CARE, [Primary Care Provider] - 7 Days Prescriptions: Zolpidem [Ambien] 5 mg PO QHS PRN #10 tablet PRN Reason: Sleep AtorvaSTATin [Lipitor] 40 mg PO QHS #30 tablet Aspirin EC [Aspirin Enteric Coated TAB] 325 mg PO QDAY #30 tablet Famotidine [Pepcid] 20 mg PO DAILY #15 tablet Other Discharge Orders: Physicial Therapy (Amb) Location: None Selected
[2018-05-17 16:27] VITALS: BP 112/58
[2018-05-17] MEDS ORDERED: AFLURIA QUAD 2018-2019 SYRINGE IM ONE (16:56)
--- NOTE | 2018-05-17 17:29 | Progress Note ---
Assessment and Plan 53 year old female with history of hypertension, on no meds, presented to ER with acute left sided weakness and dysarthria. CT was neg. She received TPA and has done well with resolution of weakness and numbness in the extremities. There is residual numbness in the left hand and face, facial droop. CT and MRI confirm the area of stroke in rt. posterior frontal-parietal cortex. Plan - ASA daily Blood pressure control Atorvastatin. 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 She noted weakness and numbness of left arm, leg and face. She noted her speech was also slurred. She received TPA on 05/14 and has had resolution of the weakness, with residual numbness in face, V-2 distribution. and palm of the L hand. She denies headache. Objective - Exam Narrative Exam: General - Resting comfortably in bed. Neurological exam - Speech fluent, low volume. Relates history well. CN's - EOMs full, no nystagmus. Face with left weakness. V-1 thru V-3 with numbness to touch on left, V-2 distribution only. hearing intact. tongue midline. Motor - 5/5 on right. Left - deltoids, triceps, biceps 5/5. wrist extensors 4- /5. finger extensors 4-/5. stock lifter 3/5. LLE - 5/5 in all groups. Reflexes - trace throughout. Sensory - intact arm and leg. Decreased touch left hand palm only. Cerebellar - FTN, fine finger movements, Adilia intact. - Vital Sign Vital Signs - 12hr 05/17/18 05/17/18 05/17/18 10:00 11:30 14:37 Temperature 98.6 F Pulse Rate 71 Respiratory 20 21 20 Rate Blood Pressure 126/73 O2 Sat by Pulse 96 Oximetry 05/17/18 05/17/18 15:37 16:15 Temperature 98.5 F Pulse Rate 67 Respiratory 18 20 Rate Blood Pressure 112/58 O2 Sat by Pulse 99 Oximetry - Laboratory Findings CBC and BMP: 05/14/18 19:11 05/16/18 10:46 Abnormal Lab Findings: Abnormal Labs 05/14/18 05/14/18 05/16/18 19:11 19:11 10:46 MCHC 35 H Lymph % (Auto) 48.2 H [place] % (Auto) 9.7 H Seg Neutrophils % 39.6 L Potassium 3.4 L Glucose 109 H
== END 2018-05-17 18:40 | disposition home or self-care (01) | DRG 62 ==
LOC: ED 18:50 → CC1 22:17 → 3A 05-16 15:39
PROVIDERS: ADMIT Internal Medicine; ATTEND Internal Medicine
DX: I63.9 Cerebral infarction, unspecified (principal); G81.94 Hemiplegia, unspecified affecting left nondominant side; E87.6 Hypokalemia; I10 Essential (primary) hypertension; R47.1 Dysarthria and anarthria; R29.810 Facial weakness; R29.709 NIHSS score 9; R47.81 Slurred speech; E66.9 Obesity, unspecified; Z68.30 Body mass index [BMI] 30.0-30.9, adult; Z82.49 Family history of ischemic heart disease and other diseases of the circulatory system; Z91.14 Patient's other noncompliance with medication regimen; Z80.9 Family history of malignant neoplasm, unspecified; Z83.6 Family history of other diseases of the respiratory system
CPT/HCPCS: 36415; 70450; 70496; 70498; 70551; 71045; 80048; 80061; 80307; 84484; 85025; 85610; 85670; 85730; 90686; 93005; 93010; 94760; G0378; A9270-GY; J1650; J2997; Q9967

== ENCOUNTER 2020-03-25 12:12 | Outpatient (CLI) | payer BC ==
[2020-03-25 13:26] LABS: Basophils # (Auto) 0.1 K/mm3 (0.0-0.1); Basophils % (Auto) 1.4 % (0.0-1.8); Eosinophils # (Auto) 0.1 K/mm3 (0.0-0.4); Eosinophils % (Auto) 0.8 % (0.0-4.3); Hemoglobin 12.3 gm/dl (10.1-14.3); Lymphocytes # (Auto) 2.3 K/mm3 (1.2-5.4); Lymphocytes % (Auto) 30.9 % (13.4-35.0); Mean Corpuscular HGB Conc 33 % (30-34); Mean Corpuscular Volume 83 fl (79-97); Monocytes # (Auto) 0.6 K/mm3 (0.0-0.8); Monocytes % (Auto) 7.7 % (0.0-7.3); Platelet Count 440 K/mm3 (140-440); Red Blood Count 4.59 M/mm3 (3.65-5.03); Red Cell Distribution Width 17.7 % (13.2-15.2)
[2020-03-25 13:46] LABS: Albumin 3.9 g/dL (3.9-5)
[2020-03-25 13:58] LABS: Erythrocyte Sedimentation Rate 44 mm/Hr (0-20)
== END 2020-03-25 12:13 | disposition home or self-care (01) ==
LOC: LAB 12:12
PROVIDERS: ATTEND Specialist
DX: G65.1 Sequelae of other inflammatory polyneuropathy (principal); G62.9 Polyneuropathy, unspecified
CPT/HCPCS: 36415; 80053; 82306; 82607; 83036; 83921; 84165; 84443; 85025; 85652; 86038; 86334; 86431; 86592

== ENCOUNTER 2021-03-05 13:54 | Emergency (ER) | payer BC ==
[2021-03-05] MEDS ORDERED: ALBUTEROL 2.5 MG/3 ML NEBU IH ONE ×2 (13:57→13:59)
[2021-03-05] MEDS ORDERED: IPRATROPIUM 0.02% NEBU 2.5 ML IH ONE (13:57)
[2021-03-05] MEDS ORDERED: diphenhydrAMINE 50 MG/ML VIAL IV ONE (13:57)
[2021-03-05] MEDS ORDERED: dexAMETHasone 20 MG/5 ML VIAL IV ONE (13:57)
[2021-03-05] MEDS ORDERED: SODIUM CHLORIDE 0.9% 1000 ML 1,000 ML IV ONE (13:57)
[2021-03-05] MEDS ORDERED: EPINEPHrine/PF 1 MG/1 ML INJ SUB-Q ONE (14:01)
--- NOTE | 2021-03-05 14:06 | Emergency Department Report ---
ED General Adult HPI - General Chief complaint: Allergic Reaction Stated complaint: allergic reaction PUI?: No Source: patient - History of Present Illness Initial comments: 55-year-old -[place] female comes in distress for having allergic reaction. Patient states that she had peanut butter and macaroni and cheese from [facility] at approximately 1215 then went to get a EEG done inform the doctor that she was starting to have shortness of breath and itching. She decided to come to the emergency room to be evaluated. She states that she is allergic to lisinopril but no food allergies. Patient states that her feet itch her body itches states that she feels like she is burning. Patient comes in with jelly on her hair from her EEG. Severity scale (0 -10): 8 Quality: burning, other (Itching) Consistency: constant Improves with: none Worsens with: none Associated Symptoms: rash, shortness of breath Treatments Prior to Arrival: none - Related Data Home Medications Medication Instructions Recorded Confirmed Last Taken Lisinopril/Hydrochlorothiazide 1 each PO DAILY 05/16/18 05/26/18 Unknown [Zestoretic 10-12.5 mg Tablet] Amlodipine Besylate 5 mg PO DAILY 05/26/18 05/26/18 05/26/18 10:00 traZODone 50 mg PO HS PRN MDD 100 05/26/18 05/26/18 05/25/18 22:00 Previous Rx's Medication Instructions Recorded Last Taken Type Acetaminophen [Acetaminophen TAB] 650 mg PO Q4H PRN tablet 05/17/18 Unknown Rx AtorvaSTATin [Lipitor] 40 mg PO QHS #30 tablet 05/30/18 Unknown Rx Clopidogrel [Plavix] 75 mg PO QDAY #30 tablet 05/30/18 Unknown Rx Famotidine [Pepcid] 20 mg PO DAILY #15 tablet 05/30/18 Unknown Rx Zolpidem [Ambien] 5 mg PO QHS PRN #10 tablet 05/30/18 Unknown Rx cephALEXin [Keflex] 500 mg PO Q8HR #9 cap 05/30/18 Unknown Rx Cetirizine HCl [Zyrtec 10mg tab] 10 mg PO QDAY #30 tablet 03/05/21 Unknown Rx EPINEPHrine [Epipen 2-Aleksandr] 0.3 mg IJ ONCE PRN #2 auto.injct 03/05/21 Unknown Rx Famotidine [Pepcid] 20 mg PO BID #20 tablet 03/05/21 Unknown Rx Prednisone [predniSONE 10 mg 10 mg PO .TAPER #1 tab.ds.pk 03/05/21 Unknown Rx (6-Day Pack, 21 Tabs)] Allergies Allergy/AdvReac Type Severity Reaction Status Date / Time No Known Allergies Allergy Unverified 05/14/18 18:57 ED Review of Systems ROS: Stated complaint: allergic reaction Other details as noted in HPI ED Past Medical Hx - Past Medical History Hx Hypertension: Yes Hx CVA: Yes Hx Congestive Heart Failure: No Hx Diabetes: Yes Hx Renal Disease: No Hx Arthritis: No Hx Seizures: No Hx Asthma: No Hx COPD: No Hx HIV: No - Surgical History Hx Pacemaker: No Additional Surgical History: hysterectomy, tubal ligation - Social History Smoking Status: Never Smoker - Medications Home Medications: Home Medications Medication Instructions Recorded Confirmed Last Taken Type Lisinopril/Hydrochlorothiazide 1 each PO DAILY 05/16/18 05/26/18 Unknown History [Zestoretic 10-12.5 mg Tablet] Acetaminophen [Acetaminophen TAB] 650 mg PO Q4H PRN tablet 05/17/18 05/26/18 Unknown Rx Amlodipine Besylate 5 mg PO DAILY 05/26/18 05/26/18 05/26/18 10:00 History traZODone 50 mg PO HS PRN MDD 100 05/26/18 05/26/18 05/25/18 22:00 History AtorvaSTATin [Lipitor] 40 mg PO QHS #30 tablet 05/30/18 Unknown Rx Clopidogrel [Plavix] 75 mg PO QDAY #30 tablet 05/30/18 Unknown Rx Famotidine [Pepcid] 20 mg PO DAILY #15 tablet 05/30/18 Unknown Rx Zolpidem [Ambien] 5 mg PO QHS PRN #10 tablet 05/30/18 Unknown Rx cephALEXin [Keflex] 500 mg PO Q8HR #9 cap 05/30/18 Unknown Rx Cetirizine HCl [Zyrtec 10mg tab] 10 mg PO QDAY #30 tablet 03/05/21 Unknown Rx EPINEPHrine [Epipen 2-Aleksandr] 0.3 mg IJ ONCE PRN #2 auto.injct 03/05/21 Unknown Rx Famotidine [Pepcid] 20 mg PO BID #20 tablet 03/05/21 Unknown Rx Prednisone [predniSONE 10 mg 10 mg PO .TAPER #1 tab.ds.pk 03/05/21 Unknown Rx (6-Day Pack, 21 Tabs)] ED Physical Exam - General General appearance: alert, in distress - Head Head exam: Present: atraumatic, normocephalic - Eye Eye exam: Present: normal appearance - ENT ENT exam: Present: mucous membranes moist - Respiratory Respiratory exam: Present: respiratory distress, wheezes, accessory muscle use - Cardiovascular Cardiovascular Exam: Present: regular rate - GI/Abdominal GI/Abdominal exam: Present: soft. Absent: distended, tenderness - Extremities Exam Extremities exam: Present: normal inspection, full ROM - Back Exam Back exam: Present: normal inspection - Neurological Exam Neurological exam: Present: alert, oriented X3 - Psychiatric Psychiatric exam: Present: normal affect, normal mood - Skin Skin exam: Present: urticaria ED Course Vital Signs 03/05/21 03/05/21 03/05/21 14:27 14:51 14:52 Pulse Rate 71 74 Respiratory 21 Rate Blood Pressure 111/63 113/61 [Left] O2 Sat by Pulse 94 94 Oximetry - Reevaluation(s) Reevaluation #1: 03/05/21 15:22 Patient reports she feels much better after having her treatments. Patient is nonlabored and in no acute distress ED Medical Decision Making - Medical Decision Making 55-year-old -[place] female comes in distress for having allergic reaction. Patient states that she had peanut butter and macaroni and cheese from [employer] and backs when she started having a shortness of breath rash difficulty swallowing. Patient drug allergies. Food allergies. Patient had allergic reaction orders for INT dexamethasone 10 mg IV normal saline 1 L albuterol Atrovent Benadryl 50 mg IV. Critical care attestation.: If time is entered above; I have spent that time in minutes in the direct care of this critically ill patient, excluding procedure time. ED Disposition Clinical Impression: Acute allergic reaction Disposition: 01 HOME / SELF CARE / HOMELESS Is pt being admited?: No Does the pt Need Aspirin: No Condition: Stable Instructions: How to Use an Auto-Injector Pen Additional Instructions: Please take medication as prescribed. Use your EpiPen only if you start to have an anaphylactic reaction which is allergic reaction that is severe enough to swell your throat up and inability to breathe. Follow-up with an supervisor general or your primary care provider for allergy testing. Be sure to increase your water intake for the next 3 to 5 days. Prescriptions: EPINEPHrine [Epipen 2-Aleksandr] 0.3 mg IJ ONCE PRN #2 auto.injct PRN Reason: Anaphylaxis Famotidine [Pepcid] 20 mg PO BID #20 tablet Prednisone [predniSONE 10 mg (6-Day Pack, 21 Tabs)] 10 mg PO .TAPER #1 tab.ds.pk Cetirizine HCl [Zyrtec 10mg tab] 10 mg PO QDAY #30 tablet Referrals: PRIMARY CARE, [Primary Care Provider] - 3-5 Days [facility] [Provider Group] - 3-5 Days Forms: Work/School Release Form(ED) Time of Disposition: 17:56
[2021-03-05] MEDS ORDERED: FAMOTIDINE 20 MG/2 ML INJ IV ONE (17:55)
[2021-03-05 19:34] VITALS: BP 114/63
== END 2021-03-05 19:34 | disposition home or self-care (01) ==
LOC: ED 13:54
DX: T78.40XA Allergy, unspecified, initial encounter (principal); X58.XXXA Exposure to other specified factors, initial encounter; I10 Essential (primary) hypertension; Z90.710 Acquired absence of both cervix and uterus
CPT/HCPCS: 94640; 96372; 96374; 96375; 99283; J0171; J1100; J3490

== ENCOUNTER 2021-04-07 08:57 | Emergency (ER) | payer BC, OTHER ==
[2021-04-07] MEDS ORDERED: FAMOTIDINE 20 MG/2 ML INJ IV ONE (09:34)
[2021-04-07] MEDS ORDERED: methylPREDNISolone Sod Succinate 125 MG/2 ML INJ IV ONE (09:34)
[2021-04-07] MEDS ORDERED: diphenhydrAMINE 50 MG/ML VIAL IV ONE (09:34)
[2021-04-07] MEDS ORDERED: EPINEPHrine RACEMIC 2.25% 0.5ML NEBU IH ONE (09:34)
[2021-04-07] MEDS ORDERED: SODIUM CHLORIDE 0.9% 1000 ML 1,000 ML IV ONE (09:36)
--- NOTE | 2021-04-07 09:36 | Emergency Department Report ---
HPI - General Chief Complaint: Allergic Reaction Time Seen by Provider: 04/07/21 09:09 - HPI HPI: Room 21 The patient is a 55-year-old female present with chief complaint of allergic reaction. Patient states this morning she developed an allergic reaction which includes chest pain and diffuse itching with rash. Patient states she had a similar presentation last month which she came to this emergency department. The offending agent was not known. The patient states she takes the same medications daily and does not have this reaction. Patient denies any new ingestions or foods. Patient complains of chest pain or shortness of breath in addition to her itching ED Past Medical Hx - Past Medical History Hx Hypertension: Yes Hx CVA: Yes Hx Diabetes: Yes - Surgical History Additional Surgical History: hysterectomy, tubal ligation - Family History Family history: no significant - Social History Smoking Status: Never Smoker Substance Use Type: None - Medications Home Medications: Home Medications Medication Instructions Recorded Confirmed Last Taken Type Acetaminophen [Acetaminophen TAB] 650 mg PO Q4H PRN tablet 05/17/18 05/26/18 Unknown Rx Amlodipine Besylate 10 mg PO DAILY 05/26/18 05/26/18 04/06/21 08:00 History AtorvaSTATin [Lipitor] 40 mg PO QHS #30 tablet 05/30/18 04/06/21 20:00 Rx Clopidogrel [Plavix] 75 mg PO QDAY #30 tablet 05/30/18 04/07/21 Rx 0800 Cetirizine HCl [Zyrtec 10mg tab] 10 mg PO QDAY #30 tablet 03/05/21 Unknown Rx Famotidine [Pepcid] 20 mg PO BID #20 tablet 03/05/21 Unknown Rx EPINEPHrine [Epipen 2-Aleksandr] 0.3 mg IM ONCE PRN #0.6 ml 04/07/21 Unknown Rx EPINEPHrine [Epipen 2-Aleksandr] 0.3 mg SQ ONCE PRN 04/07/21 Unknown History Famotidine [Pepcid] 20 mg PO BID #6 tablet 04/07/21 Unknown Rx Prednisone [predniSONE 10 mg 10 mg PO .TAPER #1 04/07/21 Unknown Rx (6-Day Pack, 21 Tabs)] diphenhydrAMINE [Benadryl CAP] 50 mg PO Q6HR #24 capsule 04/07/21 Unknown Rx ED Review of Systems ROS: Stated complaint: THROAT SWELLED Other details as noted in HPI Constitutional: no symptoms reported Eyes: denies: eye pain ENT: denies: throat pain Respiratory: shortness of breath Cardiovascular: chest pain Endocrine: no symptoms reported Gastrointestinal: denies: abdominal pain Genitourinary: denies: dysuria Musculoskeletal: denies: back pain Skin: rash, pruritus Neurological: denies: headache Physical Exam - Physical Exam Vital Signs: Vital Signs 04/07/21 08:58 Temperature 98 F Pulse Rate 88 Respiratory 20 Rate Blood Pressure 59/34 [Right] O2 Sat by Pulse 90 Oximetry Physical Exam: GENERAL: The patient is well-developed well-nourished female lying on stretcher appearing to be in moderate discomfort. [] HEENT: Normocephalic. Atraumatic. Extraocular motions are intact. Patient has moist mucous membranes. NECK: Supple. Labored respiration CHEST/LUNGS: Wheezing with accessory muscle use HEART/CARDIOVASCULAR: Regular. There is no tachycardia. There is no gallop rub or murmur. ABDOMEN: Abdomen is soft, nontender. Patient has normal bowel sounds. There is no abdominal distention. SKIN: There is urticaria. There is no diaphoresis. NEURO: The patient is awake, alert, and oriented. The patient is cooperative. The patient has no focal neurologic deficits. The patient has normal speech MUSCULOSKELETAL: There is no evidence of acute injury. ED Course Vital Signs 04/07/21 08:58 Temperature 98 F Pulse Rate 88 Respiratory 20 Rate Blood Pressure 59/34 [Right] O2 Sat by Pulse 90 Oximetry - Reevaluation(s) Reevaluation #1: 04/07/21 11:50 Patient states she feels much better ED Medical Decision Making - Lab Data Result diagrams: 04/07/21 10:24 04/07/21 10:24 Laboratory Tests 04/07/21 04/07/21 04/07/21 10:24 10:24 11:36 WBC 8.2 RBC 5.57 H Hgb 16.2 H Hct 49.7 H MCV 89 MCH 29 MCHC 33 RDW 16.2 H Plt Count 533 H Lymph % (Auto) 27.6 [place] % (Auto) 4.6 Eos % (Auto) 0.5 Baso % (Auto) 0.6 Lymph # (Auto) 2.3 [place] # (Auto) 0.4 Eos # (Auto) 0.0 Baso # (Auto) 0.1 Seg Neutrophils % 66.7 Seg Neutrophils # 5.4 PT 13.6 INR 0.94 Sodium 141 Potassium 5.3 H Chloride 101.4 Carbon Dioxide 23 Anion Gap 22 BUN 12 Creatinine 1.7 H Estimated GFR 38 BUN/Creatinine Ratio 7 Glucose 129 H Calcium 9.3 Total Creatine Kinase 243 H CK-MB (CK-2) 1.7 CK-MB (CK-2) Rel Index 0.6 Troponin T < 0.010 NT-Pro-B Natriuret Pep 149.0 04/07/21 14:17 WBC RBC Hgb Hct MCV MCH MCHC RDW Plt Count Lymph % (Auto) [place] % (Auto) Eos % (Auto) Baso % (Auto) Lymph # (Auto) [place] # (Auto) Eos # (Auto) Baso # (Auto) Seg Neutrophils % Seg Neutrophils # PT INR Sodium Potassium Chloride Carbon Dioxide Anion Gap BUN Creatinine Estimated GFR BUN/Creatinine Ratio Glucose Calcium Total Creatine Kinase CK-MB (CK-2) CK-MB (CK-2) Rel Index Troponin T < 0.010 NT-Pro-B Natriuret Pep - EKG Data -: EKG Interpreted by Me EKG shows normal: sinus rhythm Rate: normal (68 bpm) - EKG Data When compared to previous EKG there are: previous EKG unavailable Interpretation: nonspecific ST-T wave mar (T wave inversion in lead III) - Radiology Data Radiology results: report reviewed (Chest x-ray), image reviewed (Chest x-ray) interpreted by me: Chest x-ray-no definite focal infiltrates, no pneumothorax [facility] [address] [place] [address] XRay Report Signed Patient: ALMAZ GIBSON MR#: [id number] : 1965 Acct:[id number] Age/Sex: 55 / F ADM Date: 04/07/21 Loc: ED Attending Dr: Ordering Physician: LENY MICHEL MD Date of Service: 04/07/21 Procedure(s): XR chest 1V ap Accession Number(s): [id number] cc: LENY MICHEL MD Fluoro Time In Minutes: CHEST 1 VIEW 04/07/2021 9:08 AM INDICATION / CLINICAL INFORMATION: chest pain. COMPARISON: 1 view of the chest from 05/26/2018. FINDINGS: SUPPORT DEVICES: None. HEART / MEDIASTINUM: No significant abnormality. LUNGS / PLEURA: No significant pulmonary abnormality. No significant pleural effusion. No pneumothorax. ADDITIONAL FINDINGS: No significant additional findings. IMPRESSION: 1. No acute abnormality of the ch est. Signer Name: Len Givens MD Signed: 04/07/2021 10:13 AM Workstation Name: [id number] Transcribed By: [place] Dictated By: Len Givens MD Electronically Authenticated By: Len Givens MD Signed Date/Time: 04/07/21 1013 DD/ 1012 TD/TT: Print Cancel - Differential Diagnosis Allergic reaction Critical care attestation.: If time is entered above; I have spent that time in minutes in the direct care of this critically ill patient, excluding procedure time. ED Disposition Clinical Impression: Acute allergic reaction Disposition: 01 HOME / SELF CARE / HOMELESS Is pt being admited?: No Does the pt Need Aspirin: No Condition: Stable Instructions: How to Use an Auto-Injector Pen Additional Instructions: Return to the emergency department should you develop worsening symptoms, inability to tolerate food or liquids, high fever or any other concerns Prescriptions: diphenhydrAMINE [Benadryl CAP] 50 mg PO Q6HR #24 capsule EPINEPHrine [Epipen 2-Aleksandr] 0.3 mg IM ONCE PRN #0.6 ml PRN Reason: Anaphylaxis Famotidine [Pepcid] 20 mg PO BID #6 tablet Prednisone [predniSONE 10 mg (6-Day Pack, 21 Tabs)] 10 mg PO .TAPER #1 Referrals: RHIANNA MACKEY MD [Staff Physician] - 3-5 Days (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 Please follow-up with her for further evaluation) Time of Disposition: 14:52
--- NOTE | 2021-04-07 10:17 | XRay Report ---
CHEST 1 VIEW 04/07/2021 9:08 AM INDICATION / CLINICAL INFORMATION: chest pain. COMPARISON: 1 view of the chest from 05/26/2018. FINDINGS: SUPPORT DEVICES: None. HEART / MEDIASTINUM: No significant abnormality. LUNGS / PLEURA: No significant pulmonary abnormality. No significant pleural effusion. No pneumothora x. ADDITIONAL FINDINGS: No significant additional findings. IMPRESSION: 1. No acute abnormality of the chest. Signer Name: Len Givens MD Signed: 04/07/2021 10:13 AM Workstation Name: [id number]
[2021-04-07 10:41] LABS: Basophils # (Auto) 0.1 K/mm3 (0.0-0.1); Basophils % (Auto) 0.6 % (0.0-1.8); Eosinophils % (Auto) 0.5 % (0.0-4.3); Hematocrit 49.7 % (30.3-42.9); Hemoglobin 16.2 gm/dl (10.1-14.3); Lymphocytes # (Auto) 2.3 K/mm3 (1.2-5.4); Lymphocytes % (Auto) 27.6 % (13.4-35.0); Mean Corpuscular HGB Conc 33 % (30-34); Mean Corpuscular Volume 89 fl (79-97); Monocytes # (Auto) 0.4 K/mm3 (0.0-0.8); Monocytes % (Auto) 4.6 % (0.0-7.3); Red Blood Count 5.57 M/mm3 (3.65-5.03); Red Cell Distribution Width 16.2 % (13.2-15.2)
[2021-04-07 10:42] LABS: Platelet Count 533 K/mm3 (140-440)
[2021-04-07 10:58] LABS: Creatine Kinase MB 1.7 ng/mL (0.0-4.0)
[2021-04-07 10:59] LABS: BUN/Creatinine Ratio 7; Blood Urea Nitrogen 12 mg/dL (7-17); Calcium 9.3 mg/dL (8.4-10.2); Hemolysis Index 557
[2021-04-07] MEDS ORDERED: SODIUM POLYSTYRENE 15 GM/60 ML ORAL LIQD PO ONE (12:56)
[2021-04-07 13:09] LABS: INR 0.94 (0.87-1.13)
[2021-04-07 15:28] VITALS: BP 121/79
--- NOTE | 2021-04-08 10:20 | Electrocardiograph Report ---
[facility] Test Date: 2021-04-07 Test Time: 11:12:21 Pat Name: ALMAZ GIBSON Department: Room: Gender: F [employer]: DOROTEO : 1965 Requested By: LENY MICHEL Order Number: [id number] Reading MD: Daisy Mercer Measurements Intervals [place] Rate: 68 P: 12 PA: 119 QRS: -39 QRSD: 81 T: -7 QT: 421 QTc: 448 Interpretive Statements Sinus rhythm No previous ECG available for comparison Electronically Signed On 04-08-2021 10:19:43 EST by Daisy Mercer
== END 2021-04-07 15:42 | disposition home or self-care (01) ==
LOC: ED 08:57
DX: T78.40XA Allergy, unspecified, initial encounter (principal); X58.XXXA Exposure to other specified factors, initial encounter; I10 Essential (primary) hypertension; E11.8 Type 2 diabetes mellitus with unspecified complications
CPT/HCPCS: 36415; 71045; 80048; 82550; 82553; 83880; 84484; 85025; 85610; 93005; 93010; 94640; 96361; 96374; 96375; 99284; J1200; J2930; J3490; 94644